=== PATIENT | male | born 1970 | race Hispanic/Latino ===

== ENCOUNTER 2018-12-21 09:54 | Emergency (ER) | payer OTHER ==
[2018-12-21 10:36] LABS: RAPID GROUP A STREP NEGATIVE (NEGATIVE)
[2018-12-21] MEDS ORDERED: IBUPROFEN 600 MG TABLET ONE (10:50)
== END 2018-12-21 11:18 | disposition home or self-care (01) ==
LOC: EDH 09:54 → EEVIPCON 09:54 → EDH 11:18
DX: J00 Acute nasopharyngitis [common cold] (principal)
CPT/HCPCS: 87804; 87880